=== PATIENT | female | born 1985 | race African-American/Black ===

== ENCOUNTER 2017-01-19 00:35 | Emergency (ER) | payer OTHER ==
--- NOTE | ~2017-01-19 | CR230 ---
[facility]. [facility] A Service of [facility] & [facility] RADIOLOGY TEXT RESULTS PATIENT: IRASEMA WALLACE LOCATION: SED : 83 UNIT #: [id number] AGE: [address]: Carlos Manuel Santos DO SEX: F ORDER DR: [id number] [address] [address] [id number] E MR#: [id number] Acc #: [id number] NAME: IRASEMA WALLACE : 1985 SEX: F STUDY DATE/TIME: 01/19/2017 0016 UNIT: SED ROOM: STUDY DESCRIPTION: CR Shoulder Min 2 View Rt Attending Physician: Carlos Manuel Santos D.O. Ordering Physician: Carlos Manuel Santos D.O. Primary Care Physician: Bryan Gamez M.D. MEDICAL IMAGING REPORT This report is preliminary unless electronic signature is present. EXAM Right shoulder, 01/19 at 0016. INDICATION Right shoulder pain today. Pain after sweeping. FINDINGS 3 views of the right shoulder were obtained. There is no fracture or dislocation. There is no AC joint separation. There is some mild AC joint arthropathy. IMPRESSION Mild AC joint arthropathy, otherwise negative right shoulder. Dictated by... Tavares Joyner Jr., M.D. THIS IS AN ELECTRONICALLY VERIFIED REPORT Tavares Joyner Jr., M.D. at 01/19/2017 12:35 PM ABIODUN/jasen TD: 01/19/2017 08:31 JOB #: [id number] MEDICAL IMAGING REPORT Page 1 of 1
[~2017-01-19 00:35] MED LIST: DIFLUNISAL500 MG PO; FLEXERIL10 MG PO; IBUPROFEN600 MG PO; IBUPROFEN800 MG PO; IRON SUPPLEMENT1 TAB; MOTRIN600 M2 PO; NO MEDICATIONS; SUDAFED PO; VALTREX PO
== END 2017-01-19 01:07 | disposition home or self-care (01) ==
LOC: SED 00:35
DX: S46.911A Strain of unspecified muscle, fascia and tendon at shoulder and upper arm level, right arm, initial encounter (principal); F17.200 Nicotine dependence, unspecified, uncomplicated; X58.XXXA Exposure to other specified factors, initial encounter; Y92.009 Unspecified place in unspecified non-institutional (private) residence as the place of occurrence of the external cause
CPT/HCPCS: 73030; 96372; 99283; J1885

== ENCOUNTER 2017-06-10 18:27 | Emergency (ER) | payer OTHER ==
[~2017-06-10] VITALS: Ht 162.6 cm; Wt 79.4 kg
--- NOTE | ~2017-06-10 | EKG ---
PATIENT: IRASEMA WALLACE UNIT #: [id number] Ventricular Rate: 80 BPM Atrial Rate: 80 BPM P-R Interval: 142 ms QRS Duration: 76 ms Q-T Interval: 404 ms QTC Calculation(Bezet): 465 ms P [place]: 39 degrees Calculated R [place]: 25 degrees Calculated T [place]: 24 degrees Diagnosis Line: Normal sinus rhythm Diagnosis Line: Nonspecific T wave abnormality Diagnosis Line: Prolonged QT Diagnosis Line: Abnormal ECG Diagnosis Line: No previous ECGs available Diagnosis Line: Confirmed by PHIL RIBEIRO MD ([id number]) on 06/13/2017 Diagnosis Line: 7:01:36 PM INTERPRETING MD: QUINTIN MARTÍNEZ
--- NOTE | ~2017-06-10 | CR138 ---
[facility]. [facility] A Service of [facility] & [facility] RADIOLOGY TEXT RESULTS PATIENT: IRASEMA WALLACE LOCATION: SED : 83 UNIT #: [id number] AGE: [address]: Wyatt Driver MD SEX: F ORDER DR: [id number] [address] [address] [id number] E MR#: [id number] Acc #: [id number] NAME: IRASEMA WALLACE : 1985 SEX: F STUDY DATE/TIME: 06/10/2017 20:28 UNIT: SED ROOM: STUDY DESCRIPTION: CR Hand 2 Views Lt Attending Physician: Wyatt Driver M.D. Ordering Physician: Wyatt Driver M.D. Primary Care Physician: Bryan Gamez M.D. MEDICAL IMAGING REPORT This report is preliminary unless electronic signature is present. EXAM Left hand, 2 views. HISTORY Medial hand pain, hands shaky, dizziness upon standing, onset of symptoms this morning. FINDINGS Two views of the left hand demonstrates no fracture, dislocation or arthritic inflammatory change. Soft tissues unremarkable. IMPRESSION Negative left hand. Dictated by... Chris Unger M.D. THIS IS AN ELECTRONICALLY VERIFIED REPORT Chris Unger M.D. at 06/11/2017 2:33 PM CORNELL/buzz TD: 06/11/2017 07:21 JOB #: [id number] MEDICAL IMAGING REPORT Page 1 of 1
[2017-06-10 19:39] LABS: BASOPHIL# 0.1 X10e3 (0-0.3); BASOPHIL% 1.3 % (0-2.5); EOSINOPHIL# 0.1 X10e3 (0-0.7); EOSINOPHIL% 0.9 % (0.0-7.0); HEMATOCRIT 32.7 % (35.0-45.0); HEMOGLOBIN 10.6 gm/dL (12.0-16.0); LYMPHOCYTE# 2.4 X10e3 (1.0-3.5); LYMPHOCYTE% 38.4 % (17.0-45.0); MEAN CELL VOLUME 82.2 FL (83-96); MEAN CORPUSCULAR HEMOGLOBIN 26.5 PG (28-34); MEAN CORPUSCULAR HGB CONC 32.3 g/dL (30-36); MEAN PLATELET VOLUME 7.7 FL (6.5-11.5); MONOCYTE# 0.5 X10e3 (0-1.0); MONOCYTE% 8.8 % (3.0-12.0); NEUTROPHIL# 3.1 X10e3 (1.5-7.1); NEUTROPHIL% 50.6 % (40-75); PLATELET COUNT 421 X10e3 (140-420); RED BLOOD COUNT 3.98 X10e (3.90-5.30); RED CELL DISTRIBUTION WIDTH 17.8 % (11.0-15.5); WHITE BLOOD COUNT 6.2 X10e3 (4.0-10.5)
[2017-06-10 19:40] LABS: DIFF IND NO
[2017-06-10 19:51] LABS: POC - CKMB <1.0 ng/mL (0.0-7.9)
[2017-06-10 19:52] LABS: POC - MYOGLOBIN 47.6 ng/mL (0.0-169.0); POC - TROPONIN <0.05 ng/mL (<=0.05)
[2017-06-10 19:54] LABS: ALBUMIN SERUM 4.5 g/dL (3.5-5.0); ALCOHOL BLOOD <5 mg/dL (0); ALKALINE PHOSPHATASE 45 U/L (32-92); ALT (SGPT) 14 U/L (10-40); AST (SGOT) 23 U/L (10-42); BILIRUBIN, DIRECT 0.1 mg/dL (0.0-0.2); BILIRUBIN,INDIRECT 0.5 mg/dL (0.0-0.9); BILIRUBIN,TOTAL 0.6 mg/dL (0.2-2.0); BLOOD UREA NITROGEN 11 mg/dL (9-23); BUN/CREATININE RATIO 13.75; CALCIUM SERUM 9.4 mg/dL (8.4-10.2); CARBON DIOXIDE 26 mmol/L (22-31); CHLORIDE 105 mmol/L (100-111); CREATININE SERUM 0.8 mg/dL (0.6-1.4); GLOM FILT RATE Estimated 113.2 mL/min (>60); GLUCOSE FASTING 86 mg/dL (70-110); POTASSIUM 3.4 mmol/L (3.5-5.1); SODIUM 140 mmol/L (135-145)
[2017-06-10 20:15] LABS: URINE SOURCE CLEAN CATCH
[2017-06-10 20:16] LABS: URINE APPEARANCE CLEAR; URINE BILIRUBIN NEG (NEG); URINE BLOOD 1+ (NEG); URINE COLOR YELLOW; URINE GLUCOSE NEG (NORM); URINE KETONE TRACE (NEG); URINE LEUKOCYTE ESTERASE NEG (NEG); URINE NITRATE NEG (NEG); URINE PH 5.5 (5-8); URINE PROTEIN NEG (NEG); URINE SPECIFIC GRAVITY >=1.030 (1.003-1.035)
[2017-06-10 20:17] LABS: MICRO INDICATED? YES
[2017-06-10 20:24] LABS: CULTURE INDICATED? NO; URINE BACTERIA NEG (NEG); URINE MUCUS PRESENT; URINE SQUAMOUS EPITHELIAL CELL MODERATE /[HPF]; URINE TRANSITIONAL EPI CELLS FEW /[HPF]; URINE WBC 0-2 /[HPF] (0-5)
== END 2017-06-10 21:09 | disposition home or self-care (01) ==
LOC: SED 18:27
PROVIDERS: Emergency Medicine
DX: E86.0 Dehydration (principal); B00.1 Herpesviral vesicular dermatitis; F31.9 Bipolar disorder, unspecified; F17.200 Nicotine dependence, unspecified, uncomplicated; Z98.51 Tubal ligation status; Z88.0 Allergy status to penicillin
CPT/HCPCS: 36415; 73120; 80048; 80076; 81003; 82553; 82947; 83874; 84484; 84703; 85025; 93005; 96360; 99284; G0480